=== PATIENT | male | born 1945 | race Caucasian/White ===

== ENCOUNTER 2017-04-21 10:56 | Emergency (ER) | payer OTHER, BC ==
[~2017-04-21] VITALS: Ht 175.3 cm; Wt 85.0 kg
[~2017-04-21 10:56] MED LIST: BENEDRYL; CARVEDILOL6.25 M1 PO; CRESTOR10 M1 PO; ELIQUIS5 MG PO; FER300 PO; FLONS; GLIPIZIDE10 MG PO; GLU5 PO; IRON; LAC PO; LANTUS SOLOS100 U/M1; LASIX40 MG PO; LEVOTHYROXINE0.15 M2 PO; NEU300 PO; NORCO1 TA2 PO; PRI20 PO; THERAGRAN-M1 TA4 PO; TRAMADOL HCL50 MG PO; VENTOLIN H0.09 MG/A1 INH; ZESTRIL20 MG PO
[2017-04-21 11:11] VITALS: BP 117/71
== END 2017-04-21 13:25 | disposition home or self-care (01) ==
LOC: ED 10:56
DX: I50.33 Acute on chronic diastolic (congestive) heart failure (principal); E08.622 Diabetes mellitus due to underlying condition with other skin ulcer; L97.929 Non-pressure chronic ulcer of unspecified part of left lower leg with unspecified severity; L97.919 Non-pressure chronic ulcer of unspecified part of right lower leg with unspecified severity; I10 Essential (primary) hypertension; E03.9 Hypothyroidism, unspecified

== ENCOUNTER 2017-05-03 18:41 | Inpatient (IN) | payer OTHER, BC ==
[~2017-05-03] VITALS: Ht 172.7 cm; Wt 79.4 kg
[2017-05-03 21:00] LABS: BASOPHIL % 0.9 % (0-2); PLATELET COUNT 153 x10^3mcL (130-400)
[2017-05-03 21:02] LABS: RED CELL DISTRIBUTION WIDTH 19.4 % (11.5-14.5)
[2017-05-03 21:11] LABS: CALCIUM 8.9 mg/dL (8.5-10.1); CARBON DIOXIDE 23.9 mmol/L (21-32); CREATININE SERUM 3.3 mg/dL (0.7-1.3); POTASSIUM SERUM 5.3 mmol/L (3.5-5.1)
[2017-05-03 22:46] VITALS: BP 118/79
[2017-05-03 23:24] LABS: UA SPECIFIC GRAVITY 1.015 (1.005-1.035); microscopic required? YES; urine erythrocyte 1+ (NEGATIVE)
[2017-05-03 23:44] LABS: CHOLESTEROL/HDL RATIO 4.5; MAGNESIUM 2.1 mg/dL (1.8-2.4); PHOSPHOROUS 5.2 mg/dL (2.5-4.9)
[2017-05-03 23:49] LABS: FREE T4 1.29 ng/dL (0.76-1.46); FREE THYROXINE INDEX 2.2 ug/dL (1.4-4.5); T4(THYROXINE) 5.7 ug/dL (4.7-13.3)
[2017-05-04] VITALS (11 sets, daily range): BP systolic 101–120; BP diastolic 60–80
[2017-05-04 00:41] LABS: T3 TOTAL 0.71 ng/mL
[2017-05-04 06:35] LABS: BILIRUBIN TOTAL 0.7 mg/dL (0.20-1.00); CALCIUM 8.8 mg/dL (8.5-10.1); CARBON DIOXIDE 22.6 mmol/L (21-32); CREATININE SERUM 3.1 mg/dL (0.7-1.3); POTASSIUM SERUM 4.6 mmol/L (3.5-5.1); TOTAL PROTEIN, SERUM 7.2 g/dL (6.4-8.2)
[2017-05-04 06:38] LABS: ALBUMIN 2.6 g/dL (3.4-5.0)
[2017-05-04 06:47] LABS: PLATELET COUNT 143 x10^3mcL (130-400)
[2017-05-04 07:16] LABS: RED CELL DISTRIBUTION WIDTH 19.7 % (11.5-14.5)
[2017-05-04 16:55] LABS: APPEARANCE FLUID TURBID; COLOR FLUID YELLOW; RBC FLUID 1533 /cumm; SOURCE FLUID PLEURAL; WBC FLUID 419 /cumm
[2017-05-04 16:56] LABS: LYMPHOCYTE FLUID 55 %; MONOCYTE FLUID 36 %
[2017-05-05] VITALS (7 sets, daily range): BP systolic 100–107; BP diastolic 48–67; Ht 172.7 cm; Wt 79.4 kg
[2017-05-05 05:49] LABS: PLATELET COUNT 139 x10^3mcL (130-400)
[2017-05-05 06:01] LABS: RED CELL DISTRIBUTION WIDTH 19.3 % (11.5-14.5)
[2017-05-05 06:26] LABS: CALCIUM 8.4 mg/dL (8.5-10.1); CARBON DIOXIDE 24.8 mmol/L (21-32); CREATININE SERUM 3.1 mg/dL (0.7-1.3); MAGNESIUM 1.9 mg/dL (1.8-2.4); PHOSPHOROUS 5.2 mg/dL (2.5-4.9); POTASSIUM SERUM 4.5 mmol/L (3.5-5.1)
[2017-05-06 05:44] VITALS: BP 103/61
[2017-05-06 05:46] LABS: PLATELET COUNT 131 x10^3mcL (130-400)
[2017-05-06 06:18] LABS: CALCIUM 8.3 mg/dL (8.5-10.1); CARBON DIOXIDE 22.6 mmol/L (21-32); CREATININE SERUM 3.3 mg/dL (0.7-1.3); POTASSIUM SERUM 4.7 mmol/L (3.5-5.1)
[2017-05-06 06:43] LABS: RED CELL DISTRIBUTION WIDTH 18.6 % (11.5-14.5)
[2017-05-06 08:45] VITALS: BP 106/67
[2017-05-06 12:39] VITALS: BP 98/64
[2017-05-06 17:02] VITALS: BP 105/64
[2017-05-06 22:18] VITALS: BP 95/63
[2017-05-07 06:24] VITALS: BP 102/65
[2017-05-07 06:30] LABS: CALCIUM 8.3 mg/dL (8.5-10.1); CARBON DIOXIDE 23.2 mmol/L (21-32); CREATININE SERUM 3.5 mg/dL (0.7-1.3); PHOSPHOROUS 5.5 mg/dL (2.5-4.9); POTASSIUM SERUM 4.8 mmol/L (3.5-5.1)
[2017-05-07 06:54] LABS: PLATELET COUNT 126 x10^3mcL (130-400); RED CELL DISTRIBUTION WIDTH 19.1 % (11.5-14.5)
[2017-05-07 08:07] VITALS: BP 110/66
[2017-05-07 09:45] VITALS: BP 99/66
[2017-05-07 13:16] VITALS: BP 120/54
[2017-05-07 17:30] VITALS: BP 110/65
[2017-05-07 20:44] VITALS: BP 108/71
[2017-05-08 05:20] VITALS: BP 110/68
[2017-05-08 06:20] LABS: CALCIUM 8.6 mg/dL (8.5-10.1); CARBON DIOXIDE 24.5 mmol/L (21-32); CREATININE SERUM 3.4 mg/dL (0.7-1.3); MAGNESIUM 1.9 mg/dL (1.8-2.4); PHOSPHOROUS 5.8 mg/dL (2.5-4.9); POTASSIUM SERUM 4.6 mmol/L (3.5-5.1)
[2017-05-08 09:51] VITALS: BP 100/57
[2017-05-08] MEDS ORDERED: PEPCID20 MG PO (12:02)
[2017-05-08] MEDS ORDERED: LEVAQUIN500 M1 PO ×2 (12:04→14:17)
[2017-05-08] MEDS ORDERED: CLINDAMYCIN HC300 MG PO (12:04)
[2017-05-08] MEDS ORDERED: LAC PO (12:05)
[2017-05-08] MEDS ORDERED: Z5 PO (12:09)
[2017-05-08] MEDS ORDERED: NOVAPLUS F0.05 MG/Ac (12:10)
[2017-05-08] MEDS ORDERED: HIBICLENS118 ML TOP (12:16)
[2017-05-08] MEDS ORDERED: BACO TOP (12:17)
[2017-05-08 12:30] VITALS: BP 100/57
[2017-05-08 13:37] VITALS: BP 103/60
[2017-05-08 14:26] VITALS: BP 103/60
[2017-05-08] MEDS ORDERED: AUG500 PO (16:32)
== END 2017-05-08 18:15 | disposition home health service (06) | DRG 177 ==
LOC: ED 18:41 → DU 21:52
PROVIDERS: Emergency Medicine Emergency Medical Services; Internal Medicine; ADMIT Family Medicine
PROC: 0W9B3ZZ Drainage of Left Pleural Cavity, Percutaneous Approach (ICD-10-PCS; principal; 2017-05-04)
DX: J69.0 Pneumonitis due to inhalation of food and vomit (principal); I50.43 Acute on chronic combined systolic (congestive) and diastolic (congestive) heart failure; N17.0 Acute kidney failure with tubular necrosis; I13.0 Hypertensive heart and chronic kidney disease with heart failure and stage 1 through stage 4 chronic kidney disease, or unspecified chronic kidney disease; N18.4 Chronic kidney disease, stage 4 (severe); I42.0 Dilated cardiomyopathy; L97.919 Non-pressure chronic ulcer of unspecified part of right lower leg with unspecified severity; L03.115 Cellulitis of right lower limb; J90 Pleural effusion, not elsewhere classified; E11.622 Type 2 diabetes mellitus with other skin ulcer; B96.20 Unspecified Escherichia coli [E. coli] as the cause of diseases classified elsewhere; E87.5 Hyperkalemia; E83.39 Other disorders of phosphorus metabolism; E11.65 Type 2 diabetes mellitus with hyperglycemia; E11.51 Type 2 diabetes mellitus with diabetic peripheral angiopathy without gangrene; M71.22 Synovial cyst of popliteal space [Baker], left knee; M71.21 Synovial cyst of popliteal space [Baker], right knee; I48.2 Chronic atrial fibrillation; R16.0 Hepatomegaly, not elsewhere classified; D63.1 Anemia in chronic kidney disease; E03.9 Hypothyroidism, unspecified; Z68.26 Body mass index [BMI] 26.0-26.9, adult; Z95.0 Presence of cardiac pacemaker; Z95.1 Presence of aortocoronary bypass graft; Z79.4 Long term (current) use of insulin; Z22.322 Carrier or suspected carrier of Methicillin resistant Staphylococcus aureus
CPT/HCPCS: 32555; 36600; 82962; 83880; 84439; 88344; 94150; C1729; C9113; J0696; J1815; J1940; J2543; J3490; J7030; J7050; J7620; Q0092

== ENCOUNTER 2017-06-06 19:55 | Inpatient (IN) | payer OTHER, BC ==
[~2017-06-06] VITALS: Ht 172.7 cm; Wt 86.4 kg
[~2017-06-06 19:55] MED LIST changes: +AUG500 PO; +BACO TOP; +CLINDAMYCIN HC300 MG PO; +HIBICLENS118 ML TOP; +LEVAQUIN500 M1 PO; +NOVAPLUS F0.05 MG/Ac; +PEPCID20 MG PO; +Z5 PO
[2017-06-06 21:11] LABS: ALKALINE PHOSPHATASE 89 U/L (46-116); ALT/SGPT 29 U/L (16-63); AST/SGOT 31 U/L (15-37); BILIRUBIN TOTAL 0.59 mg/dL (0.20-1.00); CALCIUM 8.3 mg/dL (8.5-10.1); CARBON DIOXIDE 21.4 mmol/L (21-32); CHLORIDE SERUM 108 mmol/L (98-107); CREATININE SERUM 2.8 mg/dL (0.7-1.3); GLUCOSE SERUM 73 mg/dL (74-106); POTASSIUM SERUM 3.8 mmol/L (3.5-5.1); SODIUM SERUM 141 mmol/L (136-145); TOTAL PROTEIN, SERUM 7.4 g/dL (6.4-8.2)
[2017-06-06 21:13] LABS: ALBUMIN 2.7 g/dL (3.4-5.0)
[2017-06-06 21:18] LABS: BASOPHIL % 0.8 % (0-2); PLATELET COUNT 133 x10^3mcL (130-400)
[2017-06-06 21:19] LABS: RED CELL DISTRIBUTION WIDTH 19.6 % (11.5-14.5)
[2017-06-06 22:10] LABS: microscopic required? YES; urine erythrocyte 2+ (NEGATIVE)
[2017-06-06 23:09] VITALS: BP 114/72
[2017-06-06 23:18] VITALS: BP 114/72
[2017-06-06 23:22] LABS: T3 TOTAL 0.49 ng/mL
[2017-06-06 23:25] LABS: CHOLESTEROL/HDL RATIO 3.6; MAGNESIUM 2.2 mg/dL (1.8-2.4); PHOSPHOROUS 3.6 mg/dL (2.5-4.9)
[2017-06-06 23:28] VITALS: Ht 172.7 cm; Wt 86.4 kg
[2017-06-06 23:51] LABS: FREE THYROXINE INDEX 1.7 ug/dL (1.4-4.5)
[2017-06-07] VITALS (7 sets, daily range): BP systolic 112–129; BP diastolic 72–78
[2017-06-07 06:47] LABS: BASOPHIL % 1.1 % (0-2); PLATELET COUNT 132 x10^3mcL (130-400)
[2017-06-07 06:48] LABS: RED CELL DISTRIBUTION WIDTH 20.1 % (11.5-14.5)
[2017-06-07 06:49] LABS: rbc morphology (normal/abnorm) ABNORMAL (NORMAL)
[2017-06-07 06:56] LABS: CALCIUM 8.6 mg/dL (8.5-10.1); CARBON DIOXIDE 22.9 mmol/L (21-32); CHLORIDE SERUM 106 mmol/L (98-107); CREATININE SERUM 2.7 mg/dL (0.7-1.3); GLUCOSE SERUM 193 mg/dL (74-106); POTASSIUM SERUM 3.9 mmol/L (3.5-5.1); SODIUM SERUM 140 mmol/L (136-145)
[2017-06-08 06:02] VITALS: BP 116/72
[2017-06-08 09:47] VITALS: BP 99/60
[2017-06-08 12:49] LABS: BASOPHIL % 0.9 % (0-2)
[2017-06-08 12:52] LABS: PLATELET COUNT 125 x10^3mcL (130-400); RED CELL DISTRIBUTION WIDTH 20.2 % (11.5-14.5)
[2017-06-08 12:53] LABS: rbc morphology (normal/abnorm) ABNORMAL (NORMAL)
[2017-06-08 12:57] LABS: CALCIUM 8.7 mg/dL (8.5-10.1); CARBON DIOXIDE 28.2 mmol/L (21-32); CHLORIDE SERUM 101 mmol/L (98-107); CREATININE SERUM 2.7 mg/dL (0.7-1.3); GLUCOSE SERUM 158 mg/dL (74-106); POTASSIUM SERUM 3.4 mmol/L (3.5-5.1); SODIUM SERUM 137 mmol/L (136-145)
[2017-06-08 13:38] VITALS: BP 123/73
[2017-06-08 16:58] LABS: SOURCE FLUID PLEURAL
[2017-06-08 16:59] LABS: APPEARANCE FLUID HAZY; COLOR FLUID YELLOW; SITE FLUID LEFT; WBC FLUID 40 /cumm
[2017-06-08 17:00] LABS: LYMPHOCYTE FLUID 67 %; MONOCYTE FLUID 23 %; RBC FLUID 1573 /cumm
[2017-06-08 17:49] VITALS: BP 112/67
[2017-06-08 21:48] VITALS: BP 113/71
[2017-06-09 06:32] VITALS: BP 117/72
[2017-06-09 07:28] LABS: BASOPHIL % 1.3 % (0-2); PLATELET COUNT 140 x10^3mcL (130-400)
[2017-06-09 07:39] LABS: RED CELL DISTRIBUTION WIDTH 19.8 % (11.5-14.5)
[2017-06-09 07:45] LABS: CALCIUM 8.7 mg/dL (8.5-10.1); CARBON DIOXIDE 26.2 mmol/L (21-32); CHLORIDE SERUM 98 mmol/L (98-107); CREATININE SERUM 2.8 mg/dL (0.7-1.3); GLUCOSE SERUM 105 mg/dL (74-106); POTASSIUM SERUM 3.4 mmol/L (3.5-5.1); SODIUM SERUM 133 mmol/L (136-145)
[2017-06-09 10:09] VITALS: BP 107/65
[2017-06-09 14:20] VITALS: BP 101/68
[2017-06-09 16:44] VITALS: BP 97/62
[2017-06-09 22:00] VITALS: BP 110/71
[2017-06-10 08:55] LABS: CALCIUM 8.6 mg/dL (8.5-10.1); CARBON DIOXIDE 28.1 mmol/L (21-32); CHLORIDE SERUM 96 mmol/L (98-107); GLUCOSE SERUM 106 mg/dL (74-106); POTASSIUM SERUM 3.9 mmol/L (3.5-5.1); SODIUM SERUM 131 mmol/L (136-145)
[2017-06-10 08:59] LABS: BASOPHIL % 0.7 % (0-2); PLATELET COUNT 138 x10^3mcL (130-400)
[2017-06-10 10:22] VITALS: BP 105/64
[2017-06-10 10:31] LABS: RED CELL DISTRIBUTION WIDTH 20.3 % (11.5-14.5)
[2017-06-10 12:52] VITALS: BP 105/64
[2017-06-10 16:54] LABS: rbc morphology (normal/abnorm) ABNORMAL (NORMAL)
== END 2017-06-10 15:02 | disposition home or self-care (01) | DRG 264 ==
LOC: ED 19:55 → DU 21:56 → ED 21:56 → DU 22:57
PROVIDERS: Emergency Medicine; Family Medicine; Podiatrist Foot & Ankle Surgery; ADMIT Family Medicine
PROC: 0JBP0ZZ Excision of Left Lower Leg Subcutaneous Tissue and Fascia, Open Approach (ICD-10-PCS; 2017-06-07)
PROC: 0HBRXZZ Excision of Toe Nail, External Approach (ICD-10-PCS; 2017-06-07)
PROC: 0HBRXZZ Excision of Toe Nail, External Approach (ICD-10-PCS; 2017-06-07)
PROC: 0HBRXZZ Excision of Toe Nail, External Approach (ICD-10-PCS; 2017-06-07)
PROC: 0HBRXZZ Excision of Toe Nail, External Approach (ICD-10-PCS; 2017-06-07)
PROC: 0HBRXZZ Excision of Toe Nail, External Approach (ICD-10-PCS; 2017-06-07)
PROC: 0HBRXZZ Excision of Toe Nail, External Approach (ICD-10-PCS; 2017-06-07)
PROC: 0HBRXZZ Excision of Toe Nail, External Approach (ICD-10-PCS; 2017-06-07)
PROC: 0HBRXZZ Excision of Toe Nail, External Approach (ICD-10-PCS; 2017-06-07)
PROC: 0HBRXZZ Excision of Toe Nail, External Approach (ICD-10-PCS; 2017-06-07)
PROC: 0HBRXZZ Excision of Toe Nail, External Approach (ICD-10-PCS; 2017-06-07)
PROC: 0W993ZZ Drainage of Right Pleural Cavity, Percutaneous Approach (ICD-10-PCS; 2017-06-07)
PROC: 0JBN0ZZ Excision of Right Lower Leg Subcutaneous Tissue and Fascia, Open Approach (ICD-10-PCS; principal; 2017-06-07 11:00)
DX: I13.0 Hypertensive heart and chronic kidney disease with heart failure and stage 1 through stage 4 chronic kidney disease, or unspecified chronic kidney disease (principal); N17.0 Acute kidney failure with tubular necrosis; I50.43 Acute on chronic combined systolic (congestive) and diastolic (congestive) heart failure; E43 Unspecified severe protein-calorie malnutrition; D68.69 Other thrombophilia; E11.621 Type 2 diabetes mellitus with foot ulcer; E11.51 Type 2 diabetes mellitus with diabetic peripheral angiopathy without gangrene; E11.65 Type 2 diabetes mellitus with hyperglycemia; I87.2 Venous insufficiency (chronic) (peripheral); I25.10 Atherosclerotic heart disease of native coronary artery without angina pectoris; N18.9 Chronic kidney disease, unspecified; B35.1 Tinea unguium; I42.0 Dilated cardiomyopathy; D63.1 Anemia in chronic kidney disease; E87.5 Hyperkalemia; R31.9 Hematuria, unspecified; E83.39 Other disorders of phosphorus metabolism; I48.2 Chronic atrial fibrillation; E03.9 Hypothyroidism, unspecified; Z95.0 Presence of cardiac pacemaker; Z79.4 Long term (current) use of insulin; Z95.2 Presence of prosthetic heart valve; Z68.29 Body mass index [BMI] 29.0-29.9, adult; Z95.1 Presence of aortocoronary bypass graft; Z87.891 Personal history of nicotine dependence
CPT/HCPCS: 32555; 82962; 83880; 84439; 88344; 97116-GP; 97530-GP; C1729; J1644; J1815; J1940; J1956; J2001; J2270; J3490; J7050; J7620; Q0092

== ENCOUNTER 2017-06-23 17:31 | Observation (INO) | payer OTHER, BC ==
[~2017-06-23] VITALS: Ht 175.3 cm; Wt 91.8 kg
--- NOTE | 2017-06-23 19:07 | NUR ---
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
[2017-06-23 20:46] LABS: BASOPHIL % 0.8 % (0-2); PLATELET COUNT 140 x10^3mcL (130-400)
[2017-06-23 20:56] LABS: RED CELL DISTRIBUTION WIDTH 21.8 % (11.5-14.5)
[2017-06-23 21:03] LABS: ALKALINE PHOSPHATASE 85 U/L (46-116); ALT/SGPT 40 U/L (16-63); AST/SGOT 45 U/L (15-37); C REACTIVE PROTEIN 0.6 mg/dL (<=0.9); CALCIUM 8.4 mg/dL (8.5-10.1); CARBON DIOXIDE 26.4 mmol/L (21-32); CHLORIDE SERUM 93 mmol/L (98-107); CREATININE SERUM 2.8 mg/dL (0.7-1.3); GLUCOSE SERUM 163 mg/dL (74-106); POTASSIUM SERUM 3.6 mmol/L (3.5-5.1); SODIUM SERUM 128 mmol/L (136-145); TOTAL PROTEIN, SERUM 7.3 g/dL (6.4-8.2)
[2017-06-23 21:04] LABS: ALBUMIN 2.6 g/dL (3.4-5.0)
[2017-06-23 21:06] LABS: CK-MB 7.6 ng/mL (0-3.6)
[2017-06-23 21:15] LABS: FREE T4 1.16 ng/dL (0.76-1.46); FREE THYROXINE INDEX 1.9 ug/dL (1.4-4.5); T4(THYROXINE) 4.8 ug/dL (4.7-13.3)
[2017-06-23 21:57] LABS: rbc morphology (normal/abnorm) ABNORMAL (NORMAL)
[2017-06-23 21:58] LABS: ovalocyte/elliptocyte 2+; tear drop cell (dacryocyte) 1+
[2017-06-23 22:33] LABS: MAGNESIUM 2.8 mg/dL (1.8-2.4); PHOSPHOROUS 5.1 mg/dL (2.5-4.9)
[2017-06-23 22:35] LABS: CHOLESTEROL/HDL RATIO 4.2
[2017-06-23 23:11] LABS: UA SPECIFIC GRAVITY 1.015 (1.005-1.035); microscopic required? YES
[2017-06-23 23:12] LABS: urine erythrocyte 1+ (NEGATIVE)
[2017-06-24] VITALS (7 sets, daily range): BP systolic 90–106; BP diastolic 55–76; Ht 175.3 cm; Wt 91.8 kg
--- NOTE | 2017-06-24 00:10 | NUR ---
[facility]CE[facility] PT [facility], CAME IN DUE TO SOB AND WEAKNESS. AAOX4. MILD SOB NOTED, O2 SAT=95%. DENIES CHEST PAIN/PRESSURE, W/ LEFT UPPER CHEST PACEMAKER/DEFIBRILLATOR, SR W/ 1ST DEG AVB AND PVC'S ON THE MONITOR. DENIES ABDOMINAL DISCOMFORT. W/ +3-4 EDEMA ON BLE. WEAK PEDAL PULSES. W/ DARK DISCOLORATION ON BUE, BLANCHABLE REDNESS ON THE BUTTOCKS, 3 BLISTERS ON RLE, OPEN WOUND ON LLE AND DARK DISCOLORATIONS AND DRY SCABS ON BLE. HOB ELEVATED AT 35 DEG. SIDE RAILS UPX2. CALL LIGHT ON REACH. ENDORSED
--- NOTE | 2017-06-24 00:50 | NUR ---
PT RESTING IN BED. APPEARS DROWSY, BUT AROUSABL. NO S/S OF RESPIRATORY DISTRESS NOTED. NOTED X2 OPEN BLISTERS AND X1 INTACT BLISTER TO RLE. NOTED X1 OPEN BLISTER TO LLE. NOTED WITH SMALL AMOUNT SEROUS DRAINAGE TO OPEN BLISTERS. NEW DRY DRESSINGS APPLIED. TOLERATED WELL. NO S/S OF DISTRESS OR DISCOMFORT NOTED. CALL LIGHT WITHIN REACH. WILL CONTINUE TO MONITOR.
--- NOTE | 2017-06-24 02:00 | NUR ---
PT ALERT AND AWAKE. LASIX 40 MG IVP GIVEN AND IV NS INITIATED AT 15 ML/HR PER MD ORDER. LACTULOSE 30 ML GIVEN AND SWALLOWED WITHOUT DIFFICULTY. NOTED SOB WITH EXERTION. INITIATED O2 2L VIA NC. RESTING IN BED WITH HOB ELEVATED. VOIDS CONTINENT IN URINAL. REPOSITIONED FOR COMFORT. DENIES ANY PAIN AT THIS TIME. RESTING WITH RELAXED FACIAL FEATURES. CALL LIGHT WITHIN REACH. WILL CONTINUE TO MONITOR.
--- NOTE | 2017-06-24 02:56 | NUR ---
PT REQUESTED TO HAVE BLOOD SUGAR CHECKED. DENIES ANY DIZZINESS. PT STATES, "I FEEL LIKE MY BLOOD SUGAR IS OFF." NOTED BS 223. NO S/S OF DISTRESS NOTED. REMAINS ON O2 2L VIA NC. NO S/S OF RESPIRATORY DISTRESS NOTED. CALL LIGHT WITHIN REACH. WILL CONTINUE TO MONITOR.
--- NOTE | 2017-06-24 03:45 | NUR ---
PT C/O "FEELING TINGLING IN MY TOES." PT STATES THAT HE HASN'T HAD HIS DOSE OF GABAPENTIN LAST NIGHT. GABAPENTIN 300 MG PO GIVEN AND SWALLOWED WITHOUT DIFFICULTY. CALL LIGHT WITHIN REACH. WILL CONTINUE TO MONITOR.
--- NOTE | 2017-06-24 06:12 | NUR ---
PT SLEPT INTERMITTENTLY THROUGHOUT THE NIGHT. CURRENTLY AWAKE AND ALERT. NO S/S OF RESPIRATORY DISTRESS NOTED. IV PATENT AND INFUSING WELL. AMBULATORY USING FWW WITH SLOW AND STEADY GAIT TO BR. HAD X1 BM. VOIDS CONTINENT IN URINAL. NO S/S OF DISTRESS OR DISCOMFORT NOTED AT THIS TIME. CALL LIGHT WITHIN REACH. WILL CONTINUE TO MONITOR.
--- NOTE | 2017-06-24 06:31 | NUR ---
DR. ALCAZAR NOTIFIED AND AWARE OF PT'S BS THIS AM UU=698; 6 UNITS OF REGULAR INSULIN GIVEN. NEW DIET ORDERS RECEIVED; PT NOW NPO AT THIS TIME D/T POSSIBLE THORACENTESIS. NO S/S OF DISTRESS NOTED AT THIS TIME. WILL CONTINUE TO MONITOR.
--- NOTE | 2017-06-24 07:43 | NUR ---
A/O X4. CLEAR SPEECH. FOLLOW COMMANDS. ON TEL 24 HR 76. RADIAL AND PEDAL PULSES PALPABLE. BLE +3 PITTING EDEMA. <3 SECS CAP REFILL. ON 2L NC SAT 96% BREATHING EVEN AND UNLABORED. NO NVD. VOIDING ADEQUATELY. GENERALIZED WEAKNESS. NEEDS ASSIST WITH ADLS. DENIES PAIN AT THIS TIME. IV SITE INTACT ON RFA. WILL CONTINUE TO MONITOR. CALL LIGHT WITHIN REACH.
[2017-06-24 08:33] LABS: T3 TOTAL 0.59 ng/mL
--- NOTE | 2017-06-24 08:44 | NUR ---
SPOKE TO DR ESTES REGARDING DOUBLE ORDER OF MULTIVITAMINS. GIVE ONE PER DR ESTES.
--- NOTE | 2017-06-24 08:57 | NUR ---
TOOK MEDS WITHOUT DIFFICULTY.
--- NOTE | 2017-06-24 10:16 | NUR ---
SPOKE TO ON THE PHONE. UPDATED REGARDING PLAN FOR TODAY. Pt SITTING AT THE SIDE OF BED. NO DISTRESS NOTED. WILL CONTINUE TO MONITOR.
--- NOTE | 2017-06-24 13:17 | NUR ---
DAUGHTER/ PANCHITO ) AT BEDSIDE. DR ESTES CAME AT BEDSIDE AND UPDATED DAUGHTER REGARDING RECENT PLAN.
--- NOTE | 2017-06-24 18:06 | NUR ---
CALLED [facility]. STATED THEY WILL CALL ME BACK.
--- NOTE | 2017-06-24 18:30 | NUR ---
GAVE REPORT TO EVANGELINA FROM [facility].
--- NOTE | 2017-06-24 18:43 | NUR ---
DC INSTRUCTION GIVEN. VERBALIZE UNDERSTANDING. IV SITE INTACT AND DC/D. TELEBOX CLEANED AND RETURNED. NIECE TO PICKUP Pt FOR [facility]. WILL ESCORT Pt DOWN THE LOBBY.
== END 2017-06-24 18:50 | DRG 291 ==
LOC: ED 17:31 → DU 21:18
PROVIDERS: Specialist; ADMIT Family Medicine
PROC: 0W9B3ZZ Drainage of Left Pleural Cavity, Percutaneous Approach (ICD-10-PCS; principal; 2017-06-24)
DX: I50.43 Acute on chronic combined systolic (congestive) and diastolic (congestive) heart failure (principal); N17.0 Acute kidney failure with tubular necrosis; E43 Unspecified severe protein-calorie malnutrition; E87.3 Alkalosis; E87.1 Hypo-osmolality and hyponatremia; D68.69 Other thrombophilia; J90 Pleural effusion, not elsewhere classified; K72.90 Hepatic failure, unspecified without coma; E11.65 Type 2 diabetes mellitus with hyperglycemia; E11.51 Type 2 diabetes mellitus with diabetic peripheral angiopathy without gangrene; E83.41 Hypermagnesemia; I48.2 Chronic atrial fibrillation; I25.10 Atherosclerotic heart disease of native coronary artery without angina pectoris; G47.33 Obstructive sleep apnea (adult) (pediatric); D64.9 Anemia, unspecified; M62.50 Muscle wasting and atrophy, not elsewhere classified, unspecified site; E03.9 Hypothyroidism, unspecified; Z68.29 Body mass index [BMI] 29.0-29.9, adult; Z87.891 Personal history of nicotine dependence; Z95.2 Presence of prosthetic heart valve; Z95.1 Presence of aortocoronary bypass graft; Z95.810 Presence of automatic (implantable) cardiac defibrillator
CPT/HCPCS: 32555; 82962; 83880; 84439; 94150; 97110-GP; G0378; J1940; J2001; J7030; Q0092